=== PATIENT | female | born 1980 | race American Indian/Alaskan Native ===

== ENCOUNTER 2016-06-05 17:28 | Emergency (ER) | payer BC ==
[2016-06-05 19:11] LABS: Basophils % (Auto) 0.6 % (0.0-1.8); Eosinophils % (Auto) 3.2 % (0.0-4.3); Hematocrit 37.6 % (30.3-42.9); Hemoglobin 12.5 gm/dl (10.1-14.3); Mean Corpuscular HGB Conc 33 % (30-34); Mean Corpuscular Hemoglobin 30 pg (28-32); Mean Corpuscular Volume 89 fl (79-97); Platelet Count 234 K/mm3 (140-440); Red Blood Count 4.23 M/mm3 (3.65-5.03); Red Cell Distribution Width 13.9 % (13.2-15.2); White Blood Count 5.6 K/mm3 (4.5-11.0)
[2016-06-05 19:30] LABS: Bilirubin,Urine NEG (Negative); Blood,Urine NEG (Negative); Ketones,Urine 20 mg/dL (Negative); Leukocyte Esterase,Urine NEG (Negative); Mucus,Urine 3+ /HPF; Nitrite,Urine NEG (Negative); Protein,Urine <15 mg/dL mg/dL (Negative); Urobilinogen,Urine < 2.0 mg/dL (<2.0)
[2016-06-05 19:35] LABS: Alanine Aminotransferase 18 units/L (7-56); Albumin 4.1 g/dL (3.9-5); Albumin/Globulin Ratio 1.2 %; Alkaline Phosphatase 55 units/L (35-129); Anion Gap 16 mmol/L; BUN/Creatinine Ratio 11.42; Bilirubin,Total 0.4 mg/dL (0.1-1.2); Blood Urea Nitrogen 8 mg/dL (7-17); Calcium 8.4 mg/dL (8.4-10.2); Carbon Dioxide 24 mmol/L (22-30); Chloride 97.5 mmol/L (98-107); Glucose 107 mg/dL (65-100); Lipase 33 units/L (13-60); Potassium 3.5 mmol/L (3.6-5.0); Sodium 134 mmol/L (137-145); Total Protein 7.4 g/dL (6.3-8.2)
--- NOTE | 2016-06-05 21:59 | Ultrasound Report ---
FINAL REPORT EXAM: US OB \T\lt; = 14 WEEKS FETUS HISTORY: spotting TECHNIQUE: Transabdominal ultrasound was performed in multiple grayscale sonographic images were obtained of the uterus and adnexa. PRIORS: Endovaginal ultrasound from 06/05/2016 FINDINGS: Uterus measures approximately 11.4 x 4.8 x 6.7 centimeters. Gestational sac is identified in the uterus with pole noted measuring approximately 6.7 millimeters in length. heart rate was detected at 127 beats per minute. Yolk sac is identified. There is a hypoechoic focus adjacent to the gestational sac that measures approximately 12 x 6 x 10 millimeters. Left ovary measures approximately 3.6 x 3.1 x 3.4 centimeters. Prominent follicles are noted. Right ovary was not seen. IMPRESSION: 1. Viable single intrauterine with estimated gestational age 6 weeks 4 days. Estimated due date 01/25/2017. 2. Hypoechoic focus adjacent to the gestational sac is consistent with subchorionic hemorrhage. 3. Please refer to report from endovaginal ultrasound from 06/05/2016 for additional information.
--- NOTE | 2016-06-05 21:59 | Ultrasound Report ---
FINAL REPORT EXAM: US OB TRANSVAGINAL HISTORY: spotting TECHNIQUE: Endovaginal ultrasound was performed in multiple grayscale sonographic images were obtained of the uterus and adnexa. PRIORS: Transabdominal pelvic ultrasound 06/05/2016 FINDINGS: Uterus measures approximately 10.7 x 5.9 x 7.2 centimeters. Nabothian cysts are noted. There is a gestational sac in the uterus. There is a pole that measures 5.3 millimeters in length. Yolk sac is identified. heart rate is detected at 126 beats per minute. There is a hypoechoic focus adjacent to the gestational sac. Right ovary measures approximately 2.5 x 1.5 x 2.2 centimeters. Left ovary measures approximately 3.8 x 3.1 x 2.7 centimeters. Prominent follicles are noted. IMPRESSION: 1. Viable single intrauterine with estimated gestational age 6 weeks 3 days. Estimated due date 01/26/2017. Continued follow-up is recommended. 2. Hypoechoic focus adjacent to the gestational sac is consistent with subchorionic hemorrhage. 3. Please refer to report from transabdominal pelvic ultrasound from 06/05/2016 for additional information.
[2016-06-06 01:37] VITALS: BP 139/97
[2016-06-06] MEDS ORDERED: TYLENOL ONE (03:36)
[2016-06-06] MEDS ORDERED: TYLENOL PO ONE (03:37)
--- NOTE | 2016-06-06 05:06 | Emergency Department Report ---
ED Female HPI - General Chief complaint: Abdominal Pain Stated complaint: FLU SYMPTOMS/ELEVATED BP/PREG Time Seen by Provider: 06/06/16 03:27 Source: patient, RN notes reviewed Mode of arrival: Ambulatory Limitations: No Limitations - History of Present Illness Initial comments: This is a 36-year-old female. She is previously unknown to me. She is 5, para 2. Last menstrual period is April 21. Does not have an SECY currently. Patient presents to the ER complaining of flulike symptoms. She reports left ear pain, decreased hearing in the left ear, sore throat, cough productive of mild mucus, body aches, arthralgias. Symptoms started 1 week ago, positive sick contacts, they got better, and then resumes 2 days ago. There is no neck pain or neck stiffness. There is no chest pain or shortness of breath. There is also positive vaginal bleeding. She reports being sexually active with a male partner, who was similar flulike symptoms. No dizziness or lightheadedness. MD Complaint: vaginal bleeding -: Gradual Location: suprapubic Severity: mild Quality: cramping Consistency: intermittent Improves with: other (rest) Are you Now?: Yes - Related Data Previous Rx's Medication Instructions Recorded Last Taken Type Doxylamine/Pyridoxine HCl 1 each PO QHS PRN #30 tablet. 06/06/16 Unknown Rx [Elle uBrciaga 10-10 mg Tablet] Vit W-Ca,Fe,FA(<1 mg) 1 each PO QDAY #30 tablet 06/06/16 Unknown Rx [ Vitamins] Allergies Allergy/AdvReac Type Severity Reaction Status Date / Time No Known Allergies Allergy Verified 06/06/16 04:05 ED Review of Systems ROS: Stated complaint: FLU SYMPTOMS/ELEVATED BP/PREG Other details as noted in HPI Constitutional: malaise Eyes: denies: eye discharge ENT: congestion Respiratory: cough Cardiovascular: denies: chest pain Gastrointestinal: as per HPI. denies: vomiting Genitourinary: as per HPI, abnormal menses Musculoskeletal: arthralgia, myalgia Skin: denies: lesions Neurological: weakness Psychiatric: as per HPI ED Past Medical Hx - Past Medical History Previous Medical History?: Yes Hx Hypertension: Yes - Surgical History Past Surgical History?: No - Social History Smoking Status: Never Smoker Substance Use Type: Alcohol - Medications Home Medications: Home Medications Medication Instructions Recorded Confirmed Last Taken Type Doxylamine/Pyridoxine HCl 1 each PO QHS PRN #30 tablet. 06/06/16 Unknown Rx [Elle Dr 10-10 mg Tablet] Vit W-Ca,Fe,FA(<1 mg) 1 each PO QDAY #30 tablet 06/06/16 Unknown Rx [ Vitamins] ED Physical Exam - General Limitations: No Limitations General appearance: alert, in no apparent distress - Head Head exam: Present: atraumatic, normocephalic - Eye Eye exam: Present: normal appearance - ENT ENT exam: Present: normal exam, normal orophraynx, mucous membranes moist, TM's normal bilaterally, normal external ear exam - Neck Neck exam: Present: normal inspection, full ROM. Absent: tenderness, meningismus - Respiratory Respiratory exam: Present: normal lung sounds bilaterally. Absent: respiratory distress, wheezes, rales, rhonchi, stridor, chest wall tenderness - Cardiovascular Cardiovascular Exam: Present: regular rate, normal rhythm. Absent: systolic murmur, diastolic murmur, rubs, gallop - GI/Abdominal GI/Abdominal exam: Present: soft, normal bowel sounds. Absent: distended, tenderness, guarding, rebound, rigid, pulsatile mass - External exam: Present: normal external exam Speculum exam: Present: normal speculum exam Bi-manual exam: Present: normal bi-manual exam, other (escorted by TAMIKA escamilla) . Absent: cervical motion tendernes, adnexal tenderness, uterine enlargement, uterine tenderness - Extremities Exam Extremities exam: Present: normal inspection, full ROM, normal capillary refill. Absent: tenderness, pedal edema, joint swelling, calf tenderness - Back Exam Back exam: Present: normal inspection, full ROM. Absent: tenderness, CVA tenderness (R), CVA tenderness (L), muscle spasm, paraspinal tenderness, vertebral tenderness - Neurological Exam Neurological exam: Present: alert, oriented X3, normal gait, other (Extraocular movements intact. Tongue midline. No facial droop. Facial sensation intact to light touch in the V1, V2, V3 distribution bilaterally. 5 and 5 strength in 4 extremities.. Sensation is intact to light touch in 4 extremities.). Absent : motor sensory deficit - Psychiatric Psychiatric exam: Present: normal affect, normal mood - Skin Skin exam: Present: warm, dry, intact, normal color. Absent: rash ED Course Vital Signs 06/05/16 06/06/16 06/06/16 18:12 01:27 01:36 Temperature 98.3 F Pulse Rate 102 H 91 H Respiratory 20 18 18 Rate Blood Pressure 152/100 Blood Pressure 139/97 [Left] O2 Sat by Pulse 100 98 98 Oximetry - Reevaluation(s) Reevaluation #1: 06/06/16 05:09 Differential diagnosis: Threatened miscarriage, viral syndrome, influenza-like illness, influenza, incidental asymptomatic hypertension Assessment and plan: 36-year-old female with influenza-like illness, physical exam is benign and unremarkable. Tympanic membranes are unremarkable. Lung sounds are clear. Extensive discussion had with the patient. Ultrasound demonstrates intrauterine , probable subchorionic hemorrhage. A type and screen was drawn, but the patient had to leave to go to work. She understands the risks of not receiving RhoGAM, including difficulty getting in the future, hydrops, fertility issues, possible maternal/ distress. She is certainly reliable, and states she will follow up either in this emergency department, or with SECY. Furthermore, I informed the patient that I would contact her with the results of her type and screen, if it has resulted in a timely fashion. Flu swab is negative. Physical exam unremarkable. Tolerating liquid feeds. Feels improved after acetaminophen. Will be discharged. Return precautions are extensively reviewed. Reevaluation #2: 06/06/16 05:53 blood type rh + patient informed she will follow up with an [employer] pegger ED Medical Decision Making - Lab Data Result diagrams: 06/05/16 18:45 06/05/16 18:45 Vital Signs 06/05/16 06/06/16 06/06/16 18:12 01:27 01:36 Temperature 98.3 F Pulse Rate 102 H 91 H Respiratory 20 18 18 Rate Blood Pressure 152/100 Blood Pressure 139/97 [Left] O2 Sat by Pulse 100 98 98 Oximetry Lab Results 06/05/16 06/05/16 06/05/16 Range/Units 18:45 18:45 18:54 WBC 5.6 (4.5-11.0) K/mm3 RBC 4.23 (3.65-5.03) M/mm3 Hgb 12.5 (10.1-14.3) gm/dl Hct 37.6 (30.3-42.9) % MCV 89 (79-97) fl MCH 30 (28-32) pg MCHC 33 (30-34) % RDW 13.9 (13.2-15.2) % Plt Count 234 (140-440) K/mm3 Lymph % (Auto) 9.7 L (13.4-35.0) % [place] % (Auto) 10.5 H (0.0-7.3) % Eos % (Auto) 3.2 (0.0-4.3) % Baso % (Auto) 0.6 (0.0-1.8) % Lymph # 0.5 L (1.2-5.4) K/mm3 [place] # 0.6 (0.0-0.8) K/mm3 Eos # 0.2 (0.0-0.4) K/mm3 Baso # 0.0 (0.0-0.1) K/mm3 Seg Neutrophils % 76.0 H (40.0-70.0) % Seg Neutrophils # 4.2 (1.8-7.7) K/mm3 Sodium 134 L (137-145) mmol/L Potassium 3.5 L (3.6-5.0) mmol/L Chloride 97.5 L (98-107) mmol/L Carbon Dioxide 24 (22-30) mmol/L Anion Gap 16 mmol/L BUN 8 (7-17) mg/dL Creatinine 0.7 (0.7-1.2) mg/dL Estimated GFR > 60 ml/min BUN/Creatinine Ratio 11.42 % Glucose 107 H (65-100) mg/dL Calcium 8.4 (8.4-10.2) mg/dL Total Bilirubin 0.4 (0.1-1.2) mg/dL AST 16 (5-40) units/L ALT 18 (7-56) units/L Alkaline Phosphatase 55 (35-129) units/L Total Protein 7.4 (6.3-8.2) g/dL Albumin 4.1 (3.9-5) g/dL Albumin/Globulin Ratio 1.2 % Lipase 33 (13-60) units/L HCG, Quant (0-4) mIU/mL Urine Color Yellow (Yellow) Urine Turbidity Clear (Clear) Urine pH 6.0 (5.0-7.0) Ur Specific [place] 1.025 (1.003-1.030) Urine Protein <15 mg/dl (Negative) mg/dL Urine Glucose (UA) Neg (Negative) mg/dL Urine Ketones 20 (Negative) mg/dL Urine Blood Neg (Negative) Urine Nitrite Neg (Negative) Ur Reducing Substances Not Reportable Urine Bilirubin Neg (Negative) Urine Ictotest Not Reportable Urine Urobilinogen < 2.0 (<2.0) mg/dL Ur Leukocyte Esterase Neg (Negative) Urine WBC (Auto) 1.0 (0.0-6.0) /HPF Urine RBC (Auto) 4.0 (0.0-6.0) /HPF U Epithel Cells (Auto) 9.0 (0-13.0) /HPF Urine Mucus 3+ /HPF Urine HCG, Qual Positive A (Negative) 06/05/16 Range/Units 20:56 WBC (4.5-11.0) K/mm3 RBC (3.65-5.03) M/mm3 Hgb (10.1-14.3) gm/dl Hct (30.3-42.9) % MCV (79-97) fl MCH (28-32) pg MCHC (30-34) % RDW (13.2-15.2) % Plt Count (140-440) K/mm3 Lymph % (Auto) (13.4-35.0) % [place] % (Auto) (0.0-7.3) % Eos % (Auto) (0.0-4.3) % Baso % (Auto) (0.0-1.8) % Lymph # (1.2-5.4) K/mm3 [place] # (0.0-0.8) K/mm3 Eos # (0.0-0.4) K/mm3 Baso # (0.0-0.1) K/mm3 Seg Neutrophils % (40.0-70.0) % Seg Neutrophils # (1.8-7.7) K/mm3 Sodium (137-145) mmol/L Potassium (3.6-5.0) mmol/L Chloride (98-107) mmol/L Carbon Dioxide (22-30) mmol/L Anion Gap mmol/L BUN (7-17) mg/dL Creatinine (0.7-1.2) mg/dL Estimated GFR ml/min BUN/Creatinine Ratio % Glucose (65-100) mg/dL Calcium (8.4-10.2) mg/dL Total Bilirubin (0.1-1.2) mg/dL AST (5-40) units/L ALT (7-56) units/L Alkaline Phosphatase (35-129) units/L Total Protein (6.3-8.2) g/dL Albumin (3.9-5) g/dL Albumin/Globulin Ratio % Lipase (13-60) units/L HCG, Quant 06668 H (0-4) mIU/mL Urine Color (Yellow) Urine Turbidity (Clear) Urine pH (5.0-7.0) Ur Specific [place] (1.003-1.030) Urine Protein (Negative) mg/dL Urine Glucose (UA) (Negative) mg/dL Urine Ketones (Negative) mg/dL Urine Blood (Negative) Urine Nitrite (Negative) Ur Reducing Substances Urine Bilirubin (Negative) Urine Ictotest Urine Urobilinogen (<2.0) mg/dL Ur Leukocyte Esterase (Negative) Urine WBC (Auto) (0.0-6.0) /HPF Urine RBC (Auto) (0.0-6.0) /HPF U Epithel Cells (Auto) (0-13.0) /HPF Urine Mucus /HPF Urine HCG, Qual (Negative) - Radiology Data Radiology results: report reviewed, image reviewed Transvaginal ultrasound demonstrates intrauterine , 6 weeks and 3 days , hypoechoic focus consistent with probable subchorionic hemorrhage. Critical care attestation.: If time is entered above; I have spent that time in minutes in the direct care of this critically ill patient, excluding procedure time. ED Disposition Clinical Impression: Threatened miscarriage, Influenza-like illness, Elevated blood pressure Disposition: DISCHARGED TO HOME OR SELFCARE Is pt being admited?: No Does the pt Need Aspirin: No Condition: Stable Instructions: Threatened Miscarriage (ED), Influenza (ED), Hypertension (ED) Additional Instructions: avoid heavy lifting. Avoid strenuous physical activity. Avoid sexual activity. Follow-up with an SEC[facility] doctor within the next week. Dr. Neal is a local SEC[facility] doctor. "[facility]", and "[facility]" are both local [facility] practices. Follow-up with the primary care doctor or body builder for elevated blood pressure. Long-term complications of elevated blood pressure includes stroke, heart attack, disability, , paralysis, permanent loss of quality of life. A type and screen was sent today. The results are still pending. Make certain that you follow up with either an SEC[facility] doctor or return to the ER for results of your type and screen. Please note that by not staying for your type and screen results, if you are type negative blood, not follow-up for special injection within the next 48-72 hours, he may not be able to safely have children or get in the future. Do not engage in sexual activity until her primary care doctor or SEC[facility] doctor clears you to do so. Return to the ER right away with new pain, worsened pain, migration of pain, fevers or chills, intractable nausea or vomiting, inability to tolerate liquid feeds. Prescriptions: Doxylamine/Pyridoxine HCl [Elle Burciaga 10-10 mg Tablet] 1 each PO QHS PRN #30 tablet. PRN Reason: Nausea Vit W-Ca,Fe,FA(<1 mg) [ Vitamins] 1 each PO QDAY #30 tablet Referrals: PRIMARY CAREMD [Primary Care Provider] - 3-5 Days ESEQUIEL NEAL MD [Staff Physician] - 3-5 Days [facility] [Provider Group] - 3-5 Days [facility] [Provider Group] - 3-5 Days Forms: Work/School Release Form(ED)
== END 2016-06-06 05:15 | disposition home or self-care (01) ==
LOC: ED 17:28
DX: O20.0 Threatened abortion (principal); J11.1 Influenza due to unidentified influenza virus with other respiratory manifestations; I10 Essential (primary) hypertension
CPT/HCPCS: 36415; 76801; 76817; 80053; 81001; 81025; 83690; 84702; 85025; 86850; 86900; 86901; 87400

== ENCOUNTER 2016-12-14 15:33 | Emergency (ER) | payer BC ==
--- NOTE | 2016-12-14 16:58 | Emergency Department Report ---
ED General Adult HPI - General Chief complaint: Urogenital-Female Stated complaint: RT BREAST PAIN Time Seen by Provider: 12/14/16 16:53 Source: patient, family Mode of arrival: Ambulatory Limitations: No Limitations - History of Present Illness -: Sudden (3d) Location: chest (r breast) Radiation: other (to nipple) Consistency: intermittent Improves with: none Worsens with: movement Associated Symptoms: denies other symptoms. denies: confusion, chest pain, cough, diaphoresis, fever/chills, headaches, loss of appetite, malaise, nausea/ vomiting, rash, seizure, shortness of breath, syncope, weakness, other Treatments Prior to Arrival: none - Related Data Previous Rx's Medication Instructions Recorded Last Taken Type Doxylamine/Pyridoxine HCl 1 each PO QHS PRN #30 tablet. 06/06/16 Unknown Rx [Elle Burciaga 10-10 mg Tablet] Vit W-Ca,Fe,FA(<1 mg) 1 each PO QDAY #30 tablet 06/06/16 Unknown Rx [ Vitamins] Cephalexin [Keflex] 500 mg PO Q12HR #14 cap 12/14/16 Unknown Rx traMADol [Ultram] 50 mg PO Q6HR PRN #10 tablet 12/14/16 Unknown Rx Allergies Allergy/AdvReac Type Severity Reaction Status Date / Time No Known Allergies Allergy Verified 06/06/16 04:05 ED Review of Systems ROS: Stated complaint: RT BREAST PAIN Other details as noted in HPI Comment: All other systems reviewed and negative Constitutional: no symptoms reported, see HPI Eyes: as per HPI ENT: as per HPI Respiratory: no symptoms reported, see HPI Cardiovascular: as per HPI. denies: chest pain, palpitations, dyspnea on exertion, orthopnea Endocrine: no symptoms reported, see HPI. denies: excessive sweating, flushing , intolerance to cold, intolerance to heat Gastrointestinal: as per HPI. denies: abdominal pain, nausea, vomiting Genitourinary: as per HPI, other (r breast pain). denies: urgency, dysuria, frequency, hematuria, discharge, abnormal menses, dyspareunia Musculoskeletal: as per HPI. denies: back pain Skin: as per HPI. denies: rash, lesions Neurological: as per HPI. denies: headache, weakness Psychiatric: as per HPI, anxiety. denies: depression Hematological/Lymphatic: as per HPI. denies: easy bleeding ED Past Medical Hx - Past Medical History Previous Medical History?: Yes Hx Hypertension: Yes - Surgical History Past Surgical History?: Yes - Family History Family history: no significant - Social History Smoking Status: Never Smoker Substance Use Type: Alcohol - Medications Home Medications: Home Medications Medication Instructions Recorded Confirmed Last Taken Type Doxylamine/Pyridoxine HCl 1 each PO QHS PRN #30 tablet. 06/06/16 Unknown Rx [Diclegis Dr 10-10 mg Tablet] Vit W-Ca,Fe,FA(<1 mg) 1 each PO QDAY #30 tablet 06/06/16 Unknown Rx [ Vitamins] Cephalexin [Keflex] 500 mg PO Q12HR #14 cap 12/14/16 Unknown Rx traMADol [Ultram] 50 mg PO Q6HR PRN #10 tablet 12/14/16 Unknown Rx ED Physical Exam - General Limitations: No Limitations General appearance: alert, in no apparent distress - Head Head exam: Present: atraumatic, normocephalic - Eye Eye exam: Present: normal appearance - ENT ENT exam: Present: normal exam, mucous membranes moist - Neck Neck exam: Present: normal inspection, full ROM. Absent: tenderness, meningismus, lymphadenopathy, thyromegaly - Respiratory Respiratory exam: Present: normal lung sounds bilaterally. Absent: respiratory distress, wheezes, rales, rhonchi, stridor - Cardiovascular Cardiovascular Exam: Present: regular rate, normal rhythm - GI/Abdominal GI/Abdominal exam: Present: soft - Rectal Rectal exam: Present: deferred - Extremities Exam Extremities exam: Present: normal inspection, full ROM. Absent: tenderness - Back Exam Back exam: Present: normal inspection, full ROM. Absent: tenderness, CVA tenderness (R) - Neurological Exam Neurological exam: Present: alert, oriented X3, CN II-XII intact, normal gait, reflexes normal. Absent: motor sensory deficit - Psychiatric Psychiatric exam: Present: normal affect, normal mood, anxious. Absent: depressed, agitated - Skin Skin exam: Present: warm, dry, intact, normal color. Absent: rash, cyanosis, diaphoretic, erythema, urticaria, vesicles, petechiae, pallor, abrasion, ecchymosis - Expanded Skin Exam Expanded Type of lesion: Present: other (mole on r breast) 1 - localized pain w rad to r nipple - Other Other exam information: no mass, cyst, abscess on exam of breast breast exam wnl ED Course Vital Signs 12/14/16 15:49 Temperature 98.7 F Pulse Rate 76 Respiratory 20 Rate Blood Pressure 158/104 O2 Sat by Pulse 100 Oximetry - Reevaluation(s) Reevaluation #1: 12/14/16 16:55 to er w very localized r breast pain no nipple d/c no dimpling etc no s/s infection obvious not breast feeding works at [employer] did not go to work today thinks could be pulled muscle came sudden no associated s/s bp elevated but did not take her rx today will when she gets home no cp no sob non ill non toxic appearing no fever exam wnl long discussion about her concerns will go to pcp Friday for 1st kenny just at end of her monthly menses ED Medical Decision Making - Medical Decision Making see note - Differential Diagnosis muskle strain/ breast etiology Critical care attestation.: If time is entered above; I have spent that time in minutes in the direct care of this critically ill patient, excluding procedure time. ED Disposition Clinical Impression: Breast pain Disposition: DC-01 TO HOME OR SELFCARE Is pt being admited?: No Does the pt Need Aspirin: No Condition: Stable Instructions: Breast Self-exam (ED), Mammogram (ED), Breast Care for the Non- breast Feeding Woman (ED) Additional Instructions: warm compresses meds as ordered today follow up pcp or obgyn on Friday for recheck and kenny --for peace of mind fluids rest take your bp meds each day Referrals: PRIMARY CARE,MD [Primary Care Provider] - 3-5 Days Forms: Work/School Release Form(ED) Time of Disposition: 16:59
[2016-12-14 17:17] VITALS: BP 165/104
== END 2016-12-14 17:19 | disposition home or self-care (01) ==
LOC: ED 15:33
DX: N64.4 Mastodynia (principal); I10 Essential (primary) hypertension
CPT/HCPCS: 99282